=== PATIENT | female | born 1965 | race Caucasian/White ===

== ENCOUNTER 2020-02-29 13:41 | Outpatient (CLI) | payer OTHER | END 2020-02-29 13:42 | disposition home or self-care (01) | LOC: CSHMRI 13:41 | PROVIDERS: ATTEND Anesthesiology | DX: M54.6 Pain in thoracic spine (principal); M54.5 Low back pain; M40.292 Other kyphosis, cervical region; M19.90 Unspecified osteoarthritis, unspecified site; M46.1 Sacroiliitis, not elsewhere classified; M41.9 Scoliosis, unspecified | CPT/HCPCS: 72141; 72146; 72148 ==

== ENCOUNTER 2023-01-11 10:22 | Outpatient (CLI) | payer OTHER | END 2023-01-11 10:23 | disposition home or self-care (01) | LOC: CSHULT 10:22 | PROVIDERS: ATTEND Specialist | DX: R31.9 Hematuria, unspecified (principal) | CPT/HCPCS: 76770 ==